=== PATIENT | female | born 1945 | race Caucasian/White ===

== ENCOUNTER 2017-11-17 10:35 | Outpatient (REF) | payer MEDICARE, BC, SELFPAY | END 2017-11-17 10:55 | LOC: NCHCN 10:35 | PROVIDERS: Visit Provider Family Medicine | DX: E79.0 Hyperuricemia without signs of inflammatory arthritis and tophaceous disease (principal); Z01.818 Encounter for other preprocedural examination | CPT/HCPCS: 84550 ==

== ENCOUNTER 2017-12-06 08:45 | Day surgery (SDC) | payer MEDICARE, BC, SELFPAY ==
--- NOTE | 2017-12-04 09:56 | POEE_ITS ---
History of Present Illness Chief Complaint: Progressive decreased vision, right eye Narrative: The patient is a 72-year-old female with history of optic disc cupping, suspicious for glaucoma who developed significant cataract of the left eye in 2017. She underwent cataract surgery in the left eye in 2017. Postoperatively she has regained visual acuity of 20/25 in the left eye. She now presents with complaints of progressive decreased vision at both distance and near in her right eye. On examination she was noted to have moderate yellow nuclear cataract in the right eye. She felt she was significantly symptomatic that she desired cataract surgery to improve and maximize her vision in the right eye. NOTE: The Chief Complaint, HPI, Past Medical History, Past Surgical History, Family History, Social History, Medications, and complete Ophthalmic Exam with detailed Assessment and Plan have already been documented in the patient's outpatient ophthalmic record and are not covered again in detail here. PFSH Medical History Epiretinal membrane (ERM) of left eye (Chronic) Glaucoma suspect of left eye (Chronic) Glaucoma suspect of right eye (Chronic) Nuclear sclerotic cataract of right eye (Acute) Social History Smoking/Tobacco Use Status: Current every day Surgical History Status post cataract extraction and insertion of intraocular lens of left eye ( Chronic 09/07/16) Meds Home Medications Medication Instructions Recorded Confirmed Type aspirin [Aspir 81] 81 mg PO DAILY 09/01/16 12/01/17 History indomethacin 50 mg PO TID PRN 09/01/16 12/01/17 History latanoprost 1 drp OU DAILY 09/01/16 12/01/17 History losartan 50 mg PO DAILY 09/01/16 12/01/17 History Allergies Allergy/AdvReac Type Severity Reaction Status Date / Time lisinopril AdvReac Intermediate chronic Unverified 12/01/17 13:42 cough Exam OCULAR EXAM:: Visual acuity at distance: Corrected to a fuzzy 20/40 right eye, left eye is 20/25. Pupils: Pupils equal, round, and reactive without afferent pupillary defect IOP: 17 OD, 15 OS Extraocular Motility: Normal Pertinent Slit Lamp Findings: Significant for a 2+ yellow nuclear cataract OD. In the left eye there is a well-positioned PCIOL with trace posterior subcapsular haze. Dilated Funduscopic Examination: Disc cupping is 0.75 OU. The rim tissue is thin in the left eye. Retinal vasculature is normal. In the right eye the macula and peripheral retina are normal. In the left eye, there is an epiretinal membrane. Peripheral retina and vitreous are normal in the left eye. BRIGHTNESS ACUITY TESTING (BAT):: see outpatient eye chart Assessment and Plan (1) Nuclear sclerotic cataract of right eye: Current visit: No Status: Acute Assessment: Visually significant cataract, right eye. Plan: Cataract extraction with intraocular lens implantation, right eye Note: NOTE:: The details of the planned surgery, including the risks, indications, limitations,expectations,outcome and possible complications were explained to the patient. The patient understands the complications including, but not limited to: infection, hemorrhage, posterior dislocation of the lens or nuclear fragments which may require the intervention of a vitreoretinal surgeon, possible loss of the eye, or from anesthetic complications. The patient has been made aware of the option of not having surgery, that vision following surgery may not be equal to that prior to surgery, and that the planned surgery may not achieve the intended results. Following this discussion, which the patient appeared to understand, the patient wishes to proceed with cataract surgery with lens implantation of the affected eye to improve and maximize vision.
[2017-12-06 08:55] VITALS: BP 147/80; PULSE 84; RESP 18; TEMP 36.9; O2SAT 98
[2017-12-06] MEDS: Lidocaine 2% Jelly 6 ML SYR (10:35)
[2017-12-06] MEDS: Povidone-Iodine Ophth 30 ML BTL (10:35)
[2017-12-06] MEDS: Lidocaine 1% Pres-Free 5 ML VIAL (10:41)
[2017-12-06] MEDS: Balanced Salt Soln.-PLUS 500 ML BAG (10:42)
--- NOTE | 2017-12-06 11:08 | W.PM.DSUDISC ---
Discharge Plan Discharge Details Attending Provider: Paulo Rider Primary Care Provider: Felix Wilkerson Home Meds and New Rx's Prescriptions: No Action losartan 50 MG tablet 50 mg PO DAILY RF: 0 latanoprost 2.5 ML drops 1 drp OU DAILY RF: 0 aspirin [Aspir-81] 81 MG tablet,delayed release (DR/EC) 81 mg PO DAILY RF: 0 indomethacin 50 MG capsule 50 mg PO TID PRN (Reason: Gout) RF: 0 Discharge Instructions Stand Alone Forms: Post-op Topical Cataract, Joanie Bethea (DSU) DS: Diagnosis Discharge Diagnosis (1) Nuclear sclerotic cataract of right eye: Status: Resolved (2) Status post cataract extraction and insertion of intraocular lens of right eye: Status: Acute
--- NOTE | 2017-12-06 11:09 | W.PM.OP ---
Date of service: 12/06/17 Time of Service: 11:10 Operative Note DATE OF PROCEDURE: 12/06/17 PRE-OP DIAGNOSIS: Cataract, right eye POST-OP DIAGNOSIS: same SURGEON: Paulo Rider ANESTHESIA: MAC and local (sub-tenon's anesthetic infiltration) PATHOLOGY: none sent COMPLICATIONS: None Patient was transported to: same day Patient's condition: stable Implants: Cruzito and Cruzito Vision / [employer] Tecnis ZCB00 Indications: Progressive decreased vision due to cataract, right eye Procedure Description: CATARACT SURGERY OPERATIVE REPORT PREOPERATIVE DIAGNOSIS: Nuclear cataract, right eye POSTOPERATIVE DIAGNOSIS: Same OPERATION: Cataract extraction using phacoemulsification with posterior chamber intraocular lens implant, right eye. IOL: IOL Senior Tableau Developer/Model: J&J Vision / KATRINA Tecnis ZCB00 IOL Power: + 20.0 diopters IOL Serial Number: [id number] Optic Diameter: 6.0mm Haptic/Overall Diameter: 13.0mm PHACO INFO: Vishal GERSurion Vision System with OZil and Active Fluidics Cumulative Dispersed Energy (CDE): 10.85 seconds SURGEON: Paulo Rider MD, DWIGHT ANESTHESIA: Monitored Anesthesia Care (MAC), with local sub-tenon's anesthetic infiltration COMPLICATIONS: None SPECIMENS: None INDICATIONS FOR PROCEDURE: The patient is a 72-year-old female who has previously undergone cataract surgery in her left eye in 08/24. She is done well postoperatively in the left eye. However, she has now developed a symptomatic nuclear cataract in the right eye. She desires cataract surgery and attempt to improve and maximize her vision. PROCEDURE: The correct surgical eye was identified and marked as the right eye and the pupil was dilated in the preoperative area using mydriatics, cycloplegics, and NSAIDS (except in aspirin allergic patients). The dilated pupil size was 8.0 mm. Oral sedation was administered in the form of an Imprimis MKO Melt (midazolam 3mg/ketamine 25mg/ondansetron 2mg). The patient was brought to the operating room where cardiopulmonary monitoring was instituted and surgical time-out was performed, confirming the correct operative eye and IOL power. Topical anesthesia was administered and ophthalmic povidone-iodine 5% was instilled into the conjunctival fornices. Lidocaine gel was applied to the cornea and the marin-ocular area was prepped with Betadine 10% solution and draped in the usual sterile fashion for intraocular surgery. Steri-strips were used to cover the lashes and lid margins and an adhesive eye drape was placed. Care was taken to isolate the lashes and lid margins under the Steri-strips and adhesive eye drape. A lid speculum was placed between the lids of the operative eye and the Branden-Aly operating microscope was maneuvered into position. Chelsie scissors were then used to make a conjunctival buttonhole approximately 6mm posterior to the limbus in the inferonasal quadrant. Blunt dissection was carried out to expose bare sclera, and a blunt-tipped sub-tenon?s anesthesia cannula was introduced and passed posteriorly along the globe where non-preserved plain lidocaine was injected into posterior sub-Tenon?s space. A sideport knife was used to make a paracentesis port at the 7:00 postion and the anterior chamber was filled with Healon GV. A 2.4mm keratome knife was used to create a half-thickness groove at the limbus and then to construct a three-plane near-clear corneal tunnel extending 2.0mm into clear cornea at the 10:00 position. A flap was raised on the anterior capsule and capsulorhexis forceps were used to complete a continuous curvilinear capsulorhexis of 5.0 mm. Balanced salt solution was then used to perform cortical cleaving hydrodissection and nuclear hydrodelineation until the lens could be freely rotated within the capsular bag. The lens nucleus was then disassembled and removed within the capsular bag and iris plane using phacoemulsification. Residual cortical material was removed using the 45-degree angled silicone I/A tip with 0.3mm port. The posterior capsule was carefully polished to remove as much residual lens epithelial cells as safely possible. The capsular bag was then inflated and the anterior chamber deepened with viscoelastic. The lens implant described above was inserted into the capsular bag using the KATRINA [place] Injector. A Kuglen hook was used to dial the IOL into position. Residual viscoelastic was then removed first from posterior to the IOL, then from the anterior chamber using the I/A handpiece. The lens implant was noted to center nicely within the capsular bag. The incisions were stromally hydrated, and the anterior chamber was reformed using BSS. Then 0.4cc of moxifloxacin 1.5mg/ml were injected into the capsular bag and anterior chamber. The incisions were checked with a Weck spear and found to be secure. Several drops of ophthalmic povidone-iodine 5% were then applied to the eye followed by two drops of Imprimis combination moxifloxacin/dexamethasone solution. The drapes were removed and a clear plastic protective eye shield was placed over the eye. The patient was then returned to Same Day Surgery in stable condition.
--- NOTE | 2017-12-06 11:14 | ROE_ITS ---
Date of service: 12/06/17 Time of Service: 11:10 Operative Note DATE OF PROCEDURE: 12/06/17 PRE-OP DIAGNOSIS: Cataract, right eye POST-OP DIAGNOSIS: same SURGEON: Paulo Rider ANESTHESIA: MAC and local (sub-tenon's anesthetic infiltration) PATHOLOGY: none sent COMPLICATIONS: None Patient was transported to: same day Patient's condition: stable Implants: Cruzito and Cruzito Vision / [employer] Opt[employer] Tecnis ZCB00 Indications: Progressive decreased vision due to cataract, right eye Procedure Description: CATARACT SURGERY OPERATIVE REPORT PREOPERATIVE DIAGNOSIS: Nuclear cataract, right eye POSTOPERATIVE DIAGNOSIS: Same OPERATION: Cataract extraction using phacoemulsification with posterior chamber intraocular lens implant, right eye. IOL: IOL Stencil Cutter Machine/Model: J&J Vision / KATRINA Tecnis ZCB00 IOL Power: + 20.0 diopters IOL Serial Number: [id number] Optic Diameter: 6.0mm Haptic/Overall Diameter: 13.0mm PHACO INFO: Vishal CubeSensorsurion Vision System with OZil and Active Fluidics Cumulative Dispersed Energy (CDE): 10.85 seconds SURGEON: Paulo Rider MD, DWIGHT ANESTHESIA: Monitored Anesthesia Care (MAC), with local sub-tenon's anesthetic infiltration COMPLICATIONS: None SPECIMENS: None INDICATIONS FOR PROCEDURE: The patient is a 72-year-old female who has previously undergone cataract surgery in her left eye in 08/24. She is done well postoperatively in the left eye. However, she has now developed a symptomatic nuclear cataract in the right eye. She desires cataract surgery and attempt to improve and maximize her vision. PROCEDURE: The correct surgical eye was identified and marked as the right eye and the pupil was dilated in the preoperative area using mydriatics, cycloplegics, and NSAIDS (except in aspirin allergic patients). The dilated pupil size was 8.0 mm. Oral sedation was administered in the form of an Imprimis MKO Melt (midazolam 3mg/ketamine 25mg/ondansetron 2mg). The patient was brought to the operating room where cardiopulmonary monitoring was instituted and surgical time-out was performed, confirming the correct operative eye and IOL power. Topical anesthesia was administered and ophthalmic povidone-iodine 5% was instilled into the conjunctival fornices. Lidocaine gel was applied to the cornea and the marin-ocular area was prepped with Betadine 10% solution and draped in the usual sterile fashion for intraocular surgery. Steri-strips were used to cover the lashes and lid margins and an adhesive eye drape was placed. Care was taken to isolate the lashes and lid margins under the Steri-strips and adhesive eye drape. A lid speculum was placed between the lids of the operative eye and the Branden-Aly operating microscope was maneuvered into position. Chelsie scissors were then used to make a conjunctival buttonhole approximately 6mm posterior to the limbus in the inferonasal quadrant. Blunt dissection was carried out to expose bare sclera, and a blunt-tipped sub-tenon? s anesthesia cannula was introduced and passed posteriorly along the globe where non-preserved plain lidocaine was injected into posterior sub-Tenon?s space. A sideport knife was used to make a paracentesis port at the 7:00 postion and the anterior chamber was filled with Healon GV. A 2.4mm keratome knife was used to create a half-thickness groove at the limbus and then to construct a three-plane near-clear corneal tunnel extending 2.0mm into clear cornea at the 10:00 position. A flap was raised on the anterior capsule and capsulorhexis forceps were used to complete a continuous curvilinear capsulorhexis of 5.0 mm. Balanced salt solution was then used to perform cortical cleaving hydrodissection and nuclear hydrodelineation until the lens could be freely rotated within the capsular bag. The lens nucleus was then disassembled and removed within the capsular bag and iris plane using phacoemulsification. Residual cortical material was removed using the 45-degree angled silicone I/A tip with 0.3mm port. The posterior capsule was carefully polished to remove as much residual lens epithelial cells as safely possible. The capsular bag was then inflated and the anterior chamber deepened with viscoelastic. The lens implant described above was inserted into the capsular bag using the KATRINA [place] Injector. A Kuglen hook was used to dial the IOL into position. Residual viscoelastic was then removed first from posterior to the IOL, then from the anterior chamber using the I/A handpiece. The lens implant was noted to center nicely within the capsular bag. The incisions were stromally hydrated , and the anterior chamber was reformed using BSS. Then 0.4cc of moxifloxacin 1.5mg/ml were injected into the capsular bag and anterior chamber. The incisions were checked with a Weck spear and found to be secure. Several drops of ophthalmic povidone-iodine 5% were then applied to the eye followed by two drops of Imprimis combination moxifloxacin/dexamethasone solution. The drapes were removed and a clear plastic protective eye shield was placed over the eye. The patient was then returned to Same Day Surgery in stable condition.
[2017-12-06 11:30] VITALS: BP 123/65; PULSE 71; RESP 18; TEMP 36.6; O2SAT 94
== END 2017-12-06 11:45 | disposition home or self-care (01) ==
LOC: SUR 08:45
PROVIDERS: PCP Internal Medicine; Visit Provider Ophthalmology
PROC: (CPT 66984; principal; 2017-12-06 11:30)
DX: H25.11 Age-related nuclear cataract, right eye (principal); Z98.42 Cataract extraction status, left eye; Z96.1 Presence of intraocular lens; F17.210 Nicotine dependence, cigarettes, uncomplicated; I10 Essential (primary) hypertension
CPT/HCPCS: 66984; V2632

== ENCOUNTER 2018-11-23 09:49 | Outpatient (REF) | payer MEDICARE, BC, SELFPAY ==
[2018-11-24 08:36] LABS: Anion Gap 9.2 mmol/L (3-11); BUN 13 mg/dL (7-18); CO2 27.8 mmol/L (21.0-32.0); CREATININE 0.88 mg/dL (0.55-1.02); Calcium 9.4 mg/dL (8.5-10.1); Calculated LDL 147 mg/dL; Chloride 104 mmol/L (98-107); Cholesterol 222 mg/dL (50-200); Glucose 112 mg/dL (70-100); HDL Cholesterol 40 mg/dL (40-60); Potassium 4.1 mmol/L (3.5-5.1); Sodium 141 mmol/L (136-145); Triglyceride 178 mg/dL (30-150)
[2018-11-24 08:44] LABS: Uric Acid 6.5 mg/dL (2.6-6.0)
== END 2018-11-23 10:09 ==
LOC: NCHCN 09:49
PROVIDERS: PCP Internal Medicine; Visit Provider Internal Medicine
DX: I10 Essential (primary) hypertension (principal); E66.9 Obesity, unspecified; E79.0 Hyperuricemia without signs of inflammatory arthritis and tophaceous disease
CPT/HCPCS: 80048; 80061; 84550

== ENCOUNTER 2019-07-17 09:29 | Outpatient (REF) | payer MEDICARE, BC, SELFPAY ==
[2019-07-17 21:51] LABS: Glucose 105 mg/dL (74-106)
[2019-07-17 21:58] LABS: Hemoglobin A1C 5.8 % (3.8-5.6)
== END 2019-07-17 09:49 ==
LOC: NCHCN 09:29
PROVIDERS: PCP Internal Medicine; Visit Provider Internal Medicine
DX: R73.03 Prediabetes (principal)
CPT/HCPCS: 82947; 83036

== ENCOUNTER 2020-04-08 16:10 | Outpatient (REF) | payer MEDICARE, BC, SELFPAY ==
[2020-04-08 13:38] LABS: Anion Gap 7.7 mmol/L (3-11); BUN 14 mg/dL (7-18); CO2 27.3 mmol/L (21.0-32.0); CREATININE 0.9 mg/dL (0.55-1.02); Calcium 9.6 mg/dL (8.5-10.1); Calculated LDL 42 mg/dL (<100); Chloride 106 mmol/L (98-107); Cholesterol 94 mg/dL (<200); Glucose 116 mg/dL (74-106); HDL Cholesterol 33 mg/dL (40-60); Potassium 4.6 mmol/L (3.5-5.1); Sodium 141 mmol/L (136-145); Triglyceride 97 mg/dL (<150)
[2020-04-08 13:53] LABS: Uric Acid 6.1 mg/dL (2.6-6.0)
== END 2020-04-08 16:11 | disposition home or self-care (01) ==
LOC: NCHCN 16:10
PROVIDERS: PCP Internal Medicine; Visit Provider Internal Medicine
DX: I10 Essential (primary) hypertension (principal); E79.0 Hyperuricemia without signs of inflammatory arthritis and tophaceous disease; R73.03 Prediabetes; E78.5 Hyperlipidemia, unspecified
CPT/HCPCS: 80048; 80061; 84550

== ENCOUNTER 2021-03-06 15:00 | Outpatient (REF) | payer MEDICARE, SELFPAY ==
[2021-03-06 16:39] LABS: Hemoglobin A1C 5.6 % (<5.7)
[2021-03-06 16:40] LABS: Anion Gap 8.1 mmol/L (3-11); BUN 21 mg/dL (7-18); CO2 28.9 mmol/L (21.0-32.0); CREATININE 0.9 mg/dL (0.55-1.02); Calcium 9.1 mg/dL (8.5-10.1); Chloride 105 mmol/L (98-107); Glucose 128 mg/dL (74-106); Potassium 4.1 mmol/L (3.5-5.1); Sodium 142 mmol/L (136-145); Uric Acid 4.7 mg/dL (2.6-6.0)
== END 2021-03-06 15:01 | disposition home or self-care (01) ==
LOC: NCHCN 15:00
PROVIDERS: PCP Internal Medicine; Visit Provider Internal Medicine
DX: I10 Essential (primary) hypertension (principal); E79.0 Hyperuricemia without signs of inflammatory arthritis and tophaceous disease
CPT/HCPCS: 80048; 83036; 84550

== ENCOUNTER 2021-11-03 13:36 | Outpatient (REF) | payer MEDICARE, SELFPAY ==
[2021-11-03 15:11] LABS: Anion Gap 6.3 mmol/L (3-11); BUN 19 mg/dL (7-18); CO2 30.7 mmol/L (21.0-32.0); Calcium 9.6 mg/dL (8.5-10.1); Chloride 103 mmol/L (98-107); Estimated GFR 58.02 (mL/min/1.73m2); Glucose 115 mg/dL (74-106); Potassium 3.9 mmol/L (3.5-5.1); Sodium 140 mmol/L (136-145)
[2021-11-03 15:15] LABS: Hemoglobin A1C 5.7 % (<5.7)
--- OUTSIDE RECORDS SUMMARY | 2021-11-04 13:42 | XMS_ITS | Encounter Summary ---
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 Referral (Routine) - Authorization Not Required Specialty Diagnoses / Procedures Referred By Contact Refer red To Contact Ophthalmology Diagnoses Macular cyst, hole, or pseudohole, right eye Puckering of macula, bilateral Venous engorgement, bilateral Woodrow Booth Wp[facility] Ophthalmology [address] [facility] [address] [place] [address] [address] [place], [place] Fax: [phone] Referral ID Status Reason Start Expiration Visits Visits Date Date Requested Authorized [id number] Authorization Not 1 1 Required Encounter Details Date Type Department Care Team Description 06/07/2018 Office Visit [facility] Mario Mora MD Ophthalmology - [address], [address] [place], [place] [address] [place], [place] [phone] (Wo rk) Social History Tobacco Use Types Packs/Day Years Used Date Light Tobacco Smoker Smokeless Tobacco: Never Used Sex Assigned at Date Recorded Not on file documented as of this encounter Functional Status Functional Status Response Date of Assessment Because of a physical, mental, or emotional condition, No 06/07/2018 does this person have difficulty doing errands alone such as visiting a doctor's office or shopping? Cognitive Status Response Date of Assessment Because of a physical, mental, or emotional condition, No 06/07/2018 does this person have serious difficulty concentrating, remembering, or making decisions? documented as of this encounter Discharge Diagnoses Diagnosis H35.373 Puckering of macula, bilateral-H 35.373[ICD-10-CM] H35.349 Macular cyst, hole, or pseudohol e, unspecified eye-H35.349[ICD-10-CM] H43.393 Other vitreous opacities, bilate ral-H43.393[ICD-10-CM] documented in this encounter Discharge Disposition Disposition Code Departure Means Destination Auto Discharge documented in this encounter Progress Notes Mario Mora MD - 06/07/2018 0945 EDT Chief Complaint Patient presents with ??? Eye Problem New patient eval ERM w/ partial, tractional macular hole right eye from [facility]. HPI Location: Right eye Pain: 0 - No pain Quality: Blurry Severity: Moderate Duration: Months Timing: Constant Lasts: Continuous Context: ERM w/ partial tractional hole right eye. Borderline glaucoma using Latanaprost hs/hs Modifying factors: Patient notes has big floater in right eye that floats back and forth. No distortion in vision. Occasional flashing lights at night. Floaters both eyes. No pain. Aware of right eye, irritated. Associated Signs & Symptoms: s/p Cataract surgery both eyes, s/p YAG caps left. Visual Fluctuations: Floaters Attestation: The above HPI has been reviewed by the Attending Physiciangiant floater right eye for about 3 months, no distortion Base Eye Exam Visual Acuity (Snellen - Linear) Right Left Dist cc 20/30 -2 20/30 Correction: Glasses Tonometry (Applanation, 10:26) Right Left Pressure 18 15 Pupils Pupils Light APD Right PERRL 4 None Left PERRL 4 None Visual Martinez (Counting fingers) Right Left Full Full Extraocular Movement Right Left Full, Ortho Full, Ortho Neuro/Psych Oriented x3: Yes Mood/Affect: Normal Dilation Both eyes: 1.0% Mydriacyl, 2.5% Phenylephrine @ 10:26 Slit Lamp and Fundus Exam Slit Lamp Exam Right Left Lids/Lashes Normal Normal Conjunctiva/Sclera White and quiet White and quiet Cornea Clear Clear Anterior Chamber Deep and quiet Deep and quiet Iris Round and reactive Round and reactive Lens Posterior chamber intraocular lens Posterior chamber intraocular lens Vitreous Vitreous syneresis Vitreous syneresis vs PVD Fundus Exam Right Left Disc Normal Normal C/D Ratio 0.6 0.8 Macula ERM, pseudohole cellophane reflex Please refer to large retinal drawing. IMAGING: OCT REPORT Indications: Epiretinal Membrane Findings: Right Eye Left Eye Epiretinal Membrane and VMA, PTMH Epiretinal Membrane Original test to be found in patients shadow chart DIAGNOSES: 1. Macular pucker of both eyes OCT (OPHTHALMIC DIGITAL IMAGING, POSTERIOR SEGMENT) 2. Vitreous syneresis of both eyes 3. Lamellar macular hole of right eye OCT (OPHTHALMIC DIGITAL IMAGING, POSTERIOR SEGMENT) IMPRESSION & PLAN: ERM right eye > left eye Non visually significant No intervention recommended Pt agrees Pseudohole right eye No FTMH Stable and asymptomatic No intervention VS both eyes No PVD, holes, tears Observe Return in 1 year with OCT sooner PRN Return in about 1 year (around 06/08/2019). I have reviewed the past medical, family, social and surgical history. I have reviewed the meds, allergies, and problem list. I performed my own HPI and reviewed the ROS. I personally completed the exam. The patient was instructed to call our office or go to emergency room if worse vision, worse symptoms, or new/other concerns arise. Mario Mora MD I am scribing for Dr. Mario Mora MD while he is personally performing the service. 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 Medication Sig Dispensed Refills Start Date End Date acetaminophen (TYLENOL) 500 Take 500 mg by mouth 0 mg tablet every 6 hours as needed for Pain. aspirin chewable 81 mg Take 81 mg by mouth 0 tablet daily. latanoprost (XALATAN Place 1 drop into 0 OPHTHALMIC) both eyes at bedtime. losartan (COZAAR) 50 mg Take 50 mg by mouth 0 tablet daily. allopurinol (ZYLOPRIM) 100 Take 100 mg by mouth 0 mg tablet daily. added in this encounter Eye Exam Visual Acuity (Snellen - Linear) Right eye Left eye Dist cc 20/30 -2 20/30 Correction: Glasses Tonometry (Applanation, 10:26) Right eye Left eye Pressure 18 15 Pupils Pupils Light APD Right eye PERRL 4 None Left eye PERRL 4 None Visual Martinez (Counting fingers) Right eye Left eye Full Full Extraocular Movement Right eye Left eye Full, Ortho Full, Ortho Neuro/Psych Oriented x3: Yes Mood/Affect: Normal Dilation Both eyes: 1.0% Mydriacyl, 2.5% Phenylep hrine @ 10:26 Slit Lamp Exam Right eye Left eye Lids/Lashes Normal Normal Conjunctiva/Sclera White and quiet White and quiet Cornea Clear Clear Anterior Chamber Deep and quiet Deep and quiet Iris Round and reactive Round and reactive Lens Posterior chamber intraocular Posterior chamber intraocular lens lens Vitreous Vitreous syneresis Vitreous syneresis v s PVD Fundus Exam Right eye Left eye Disc Normal Normal C/D Ratio 0.6 0.8 Macula ERM, pseudohole cellophane reflex Care Teams Physical Instructor Relationship Specialty Start Date End Date Felix Wilkerson MD PCP - General 03/29/18 [address] [place] [address] documented as of this encounter
--- OUTSIDE RECORDS SUMMARY | 2021-11-04 13:42 | XMS_ITS | CCD ---
:1945 Author Care Team Providers Name Role Phone SHU WOOD Attending Physician Unavailable Vital Signs Unknown or Not Available. Allergies Unknown or Not Available. Procedures Unknown or Not Available. History of Immunizations Unknown or Not Available. Problems Unknown or Not Available. Results Unknown or Not Available. Active Medications Unknown or Not Available. Medications Administered During Visit Unknown or Not Available. Encounters Encounter Diagnosis Diagnosis Code Start Date Encounter for screening mammogram for malignant neoplasm Z12 31 06/26/2021 of breast Social History Smoking Status Code Start Date End Date Current every day smoker [id number] 02/09/1957 Patient Decision Aids Unknown or Not Available. Discharge Instructions You were admitted to [facility] on 06/26/2021 10:48 with a principal diagnosis of Encounter for screening mammogram for malignant neoplasm of breast You were discharged from [facility] on 06/26/2021 10:48 Should you have any questions prior to d ischarge, please contact a member of your healthcare team. If you have left the ho spital and have any questions, please contact your primary care physician. Chief Complaint and Reason For Visit Chief Complaint Date of Onset SCR Function Status Unknown or Not Available. Plan of Care Unknown or Not Available. Referral/Transition of Care Unknown or Not Available.
--- OUTSIDE RECORDS SUMMARY | 2021-11-04 13:42 | XMS_ITS | Clinical Summary ---
:1945 Author Organization [facility] Address [address] [place] [address] Care Team Providers Name Role Phone Felix Wilkerson MD Primary Care Provider Allergies No known active allergies Medications Medication Sig Dispensed Refills Start Date End Date Status allopurinol (ZYLOPRIM) Take 100 mg by 0 Active 100 mg tablet mouth daily. losartan (COZAAR) 50 mg Take 50 mg by 0 Active tablet mouth daily. latanoprost (XALATAN Place 1 drop 0 Active OPHTHALMIC) into both eyes at bedtime. aspirin chewable 81 mg Take 81 mg by 0 Active tablet mouth daily. acetaminophen (TYLENOL) Take 500 mg by 0 Active 500 mg tablet mouth every 6 hours as needed for Pain. 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 Surgical History Surgery Date Site/Laterality Comments TUBAL LIGATION CAPSULOTOMY Left INTRAOCULAR LENS PROSTHESIS INSERTION Right INTRAOCULAR LENS PROSTHESIS INSERTION Left Medical History Medical History Date Comments Hypertension Rheumatoid disease (HCC) Cataract Glaucoma Family History Medical History Relation Name Comments No Known Father Diabetes Mother Hypertension Mother Relation Name Status Comments Father Mother Social History Tobacco Use Types Packs/Day Years Used Date Light Tobacco Smoker Smokeless Tobacco: Never Used Sex Assigned at Date Recorded Not on file Plan of Treatment Upcoming Encounters Date Type Specialty Care Team Description 02/12/2022 Office Visit Ophthalmology Percy Gordon MD [address] [place] [phone] (Wo rk) Health Maintenance Due Date Last Done Comments Hepatitis C Screen 1945 COVID-19 Vaccine (#1) 1945 Fall Risk Screening 2009 Care Teams Sheather Relationship Specialty Start Date End Date Felix Wilkerson MD PCP - General 03/29/18 [address] [place] [address]
--- OUTSIDE RECORDS SUMMARY | 2021-11-04 13:42 | XMS_ITS | Encounter Summary ---
:[address] [facility] Address [address] [place] [address] Care Team Providers Name Role Phone Unknown, Provider Primary Care Provider Encounter Details Date Type Department Care Team Description 03/07/2015 Results Only [facility]- Manuela Anaya MD [phone] [address] [place] [address] (Wo rk) Social History Tobacco Use Types Packs/Day Years Used Date Never Assessed Sex Assigned at Date Recorded Not on file documented as of this encounter Plan of Treatment Upcoming Encounters Date Type Specialty Care Team Description 02/12/2022 Office Visit Ophthalmology ePrcy Gordon MD [address] [place] [phone] (Wo rk) documented as of this encounter Procedures Procedure Name Priority Date/Time Associated Diagnosis Comme [facility] SURGICAL PATHOLOGY Routine 03/07/2015 8:09 EST Re sults for this procedure are i n the results section. documented in this encounter Results SURGICAL PATHOLOGY (03/07/2015 8:09 EST) Pathology SURGICAL PATHOLOGY REPORT [facility] MEDICAL Report: Reports generated via electronic interface conta in original data; CENTER however they are lacking the format of the original re port. LABORATORY Caution should be taken when reading/interpretin g unformatted reports. SERVICES Name: ? SAMIRA DOZIER ? Accession #: ? [id number] ? : ? 1945 (Age: 69 ) ??F ? Collect Date: ? 03/07/2015 ? Location: ? [facility] ? Receive Date: ? 03/09/19 16 ? Provider: MANUELA SAUCEDO MD Copy to: ? Final Pathologic Diagnosis: SKIN OF ABDOMINAL WALL, EXCISIONAL BIOPSY: - Verruca vulgaris, irritated and inflamed. Microscopic Description: The stratum corneum is thickened by compact orth ohyperkeratosis with tiers of parakeratosis and foci of hemorrhage. ??The epidermis is hyperplastic with papillomatosis and acanthosis. ??The acanthotic rete r idges have an inward-bending configuration. ??The supe rficial keratinocytes have perinuclear vacuoles. ??The granular layer is accentuated. ??There is a moderately dense lymphohistiocytic infiltrate. ??(Dr. Ross)/[facility] Document reviewed and electronically signed by: ELYSSA ROSS MD Report ??Date: 03/12/2015 14:17 By the signature above, the attending physician certif ies that he/she has personally conducted a gross and/or microscopic examin ation of the described specimens and rendered or confirmed the above diagnosi s. Specimen(s) Received: Not listed Clinical History: Abdominal wall lesion Gross Description: ? Received in formalin labelled with proper patient identification (initials A, M) and abdominal lesion is an unoriented el liptical excision of pink-meraz skin (0.7 x 0.5 cm and is excised to a depth of 0.1 cm). There is a meraz-white eccentric papule that measures 0.4 x 0.3 x 0.2 cm. The margins are inked blue. The specimen is serially sec tioned and entirely submitted as 1 central sections and 2 tips, reverse en face. Kinza Dos Santos 03/11/2015 9:43 AM End of Report Specimen Performing Organization Address City/State/ZIP Code Phon e Number [facility] [address] [place] [address] SERVICES documented in this encounter Visit Diagnoses Not on filedocumented in this encounter Care Teams Tip Length Checker Relationship Specialty Start Date End Date Unknown, Provider, PCP - General 11/12/10 03/28/18 documented as of this encounter
--- OUTSIDE RECORDS SUMMARY | 2021-11-04 13:42 | XMS_ITS | Encounter Summary ---
:1945 Author Organization [facility] Address [address] [place] [address] Care Team Providers Name Role Phone Unknown, Provider Primary Care Provider Encounter Details Date Type Department Care Team Description 11/12/2010 Results Only [facility] Cherelle Daniels MD Laboratory Services - [address] [place] [phone] (Wo rk) Social History Tobacco Use Types Packs/Day Years Used Date Never Assessed Sex Assigned at Date Recorded Not on file documented as of this encounter Plan of Treatment Upcoming Encounters Date Type Specialty Care Team Description 02/12/2022 Office Visit Ophthalmology Percy Gordon MD [address] [place] [phone] (Wo rk) documented as of this encounter Procedures Procedure Name Priority Date/Time Associated Diagnosis Comme nts SURGICAL PATHOLOGY Routine 11/12/2010 0:00 EDT Re sults for this procedure are i n the results section. documented in this encounter Results SURGICAL PATHOLOGY (11/12/2010 0:00 EDT) Pathology SURGICAL PATHOLOGY REPORT ? [facility] Report: Reports generated via electr [email or web address] interface contain original data; ? LAB however they are lacking the format of the original report. ? Caution should be taken when reading/interpreting unformatted reports. ? Name: ? AMSDEN, SAMIRA ? Accession #: ? [id number] ? : ? 1945 (Age: 65) ??F ? Collec t Date: ? 11/12/2010 ? Location: ? [facility] ? R eceive Date: ? 11/12/2010 ? Provider: C OWEN DANIELS MD ? Copy to: ZECHARIHA MECH MD ? MANUELA N SAUCEDO MD ? Final Pathologic Diagnosis: ?Breast, right, mass , 3 o'clock, core biopsies: ? 1. ?Nodular fib rocystic changes, including: ? - Nodular fibrosis. ? - Adenosis and sclerosing ad enosis. ? - Microcysts. ? - Focal moderate epithelial hyperplasia. ? 2. ?? Microcalcificat ions associated with fibrocystic changes. ? Document reviewed and electr onically signed by: ? CHASE B AMBAYE MD ? Report ??Date: 11/14/2010 16 :57 ? By the signature above, the attending physician certifies that he/she has ? personally conducted a gross and/or microscopic examination of the described ? specimens and rendered or co nfirmed the above diagnosis. ? Specimen(s) Received: ? R breast mass 3 o'jacqueline ck ? Clinical History: ? Solid mass seen on ma mmo/US ? Gross Description: ? Received in formalin labelled Samira Stewart are eighteen white, firm, ?? focally yellow, focally soft cylinders of tissue which range in length from 2.5 cm to 0.7 cm and vary in sandy meter from 0.4 cm to 0.1 cm as well as a 2.0 x 1.3 x 0.5 cm aggregate of multiple light yellow, soft fragments of adipose tissue ? admixed with a scanty amount of white fibrous tissue and also admixed with a 0.5 x 0.1 x 0.1 cm fragment of b lood clot. ??The specimen is submitted entirely as ?? follows: ? BLOCK ALFORD ? A1-A6 ?Eighteen cylinders (each cassette contains three cylinders) ? A7, A8 ?Remaini ng separately received smaller fragments of tissue ? (J. Tessitore)/kmm ? Time in formalin: ??November 12, 2010 at 15:00 hours ? Time out of formalin: ??Octo arthur 6, 2011 at 19:00 hours ? End of Report ? Specimen Performing Organization Address City/State/[facility] Code Phon e Number [facility] [address] [place] [address] SERVICES [facility] [address] [place] [address] documented in this encounter Visit Diagnoses Not on filedocumented in this encounter Care Teams Well Puller Head Relationship Specialty Start Date End Date Unknown, Provider, PCP - General 11/12/10 03/28/18 documented as of this encounter
--- OUTSIDE RECORDS SUMMARY | 2021-11-04 13:42 | XMS_ITS | Encounter Summary ---
:1945 Author Organization [facility] Address [address] [place] [address] Care Team Providers Name Role Phone Unknown, Provider Primary Care Provider Encounter Details Date Type Department Care Team Description 03/07/2015 Hospital Encounter [facility]- Nydia Unknown, Provider, Du Saldivar MD [address] [place] [address] [place] [address] (Work) [phone] Social History Tobacco Use Types Packs/Day Years Used Date Never Assessed Sex Assigned at Date Recorded Not on file documented as of this encounter Discharge Disposition Disposition Code Departure Means Destination Home or Self Usp documented in this encounter Plan of Treatment Upcoming Encounters Date Type Specialty Care Team Description 02/12/2022 Office Visit Ophthalmology Percy Gordon MD [address] [place] [phone] (Wo rk) documented as of this encounter Visit Diagnoses Not on filedocumented in this encounter Care Teams Environmental Quality Analyst Relationship Specialty Start Date End Date Unknown, Provider, PCP - General 11/12/10 03/28/18 documented as of this encounter
== END 2021-11-03 13:37 | disposition home or self-care (01) ==
LOC: NCHCN 13:36
PROVIDERS: PCP Internal Medicine; Visit Provider Internal Medicine
DX: Z00.00 Encounter for general adult medical examination without abnormal findings (principal); I10 Essential (primary) hypertension; R73.03 Prediabetes
CPT/HCPCS: 80048; 83036

== ENCOUNTER 2022-10-08 12:47 | Outpatient (REF) | payer MEDICARE, SELFPAY ==
[2022-10-08 21:12] LABS: Abs Immature Grans 0.03 10^3/uL (0.0-0.06); Absolute Basophil Count 0.07 10^3/uL (0.0-0.2); Absolute Eosinophil Count 0.36 10^3/uL (0.0-0.7); Absolute Lymphocyte Count 2.65 10^3/uL (1.2-3.4); Absolute Monocyte Count 0.71 10^3/uL (0.1-0.8); Absolute Neutrophil Count 5.51 10^3/uL (1.2-6.7); Basophils % 0.8; Eosinophils % 3.9; HCT 40.4 % (36.0-46.0); HGB 13.6 g/dL (11.2-15.7); Immature Grans % 0.3; Lymphocytes % 28.4; MCHC 33.7 % (32.0-36.0); MCV 92 fL (80-95); MPV 9.8 fL (8.0-11.0); Monocytes % 7.6; Platelet Count 254 10^3/uL (130-400); RBC 4.39 10^6/uL (3.93-5.22); RDW 12.6 % (11.7-14.6); RDW-SD 42.6 fL; WBC 9.33 10^3/uL (4.4-10.8)
[2022-10-08 21:35] LABS: ALT 28 U/L (14-59); AST 21 U/L (15-37); Albumin 3.7 g/dL (3.4-5.0); Alkaline Phosphatase 77 U/L (46-116); Anion Gap 10.2 mmol/L (3-11); BUN 14 mg/dL (7-18); Bilirubin, Total 0.5 mg/dL (0.2-1.0); CO2 25.8 mmol/L (21.0-32.0); CREATININE 0.8 mg/dL (0.55-1.02); Calcium 9.2 mg/dL (8.5-10.1); Chloride 103 mmol/L (98-107); Estimated GFR 75.37 (mL/min/1.73m2); Glucose 100 mg/dL (74-106); Potassium 3.9 mmol/L (3.5-5.1); Sodium 139 mmol/L (136-145); TSH (W/Ref FT4) 1.12 uIU/mL (0.36-3.74); Total Protein 7.6 g/dL (6.4-8.2)
[2022-10-08 21:42] LABS: Hemoglobin A1C 5.7 % (<5.7)
== END 2022-10-08 12:48 | disposition home or self-care (01) ==
LOC: NCHCN 12:47
PROVIDERS: PCP Internal Medicine; Visit Provider Family Medicine
DX: I10 Essential (primary) hypertension (principal); R73.03 Prediabetes; R53.83 Other fatigue
CPT/HCPCS: 80053; 83036; 84443; 85025

== ENCOUNTER 2023-10-28 15:51 | Outpatient (REF) | payer MEDICARE, SELFPAY ==
[2023-10-28 16:43] LABS: Abs Immature Grans 0.02 10^3/uL (0.0-0.06); Absolute Basophil Count 0.04 10^3/uL (0.0-0.2); Absolute Eosinophil Count 0.27 10^3/uL (0.0-0.7); Absolute Lymphocyte Count 1.56 10^3/uL (1.2-3.4); Absolute Monocyte Count 0.88 10^3/uL (0.1-0.8); Absolute Neutrophil Count 5.22 10^3/uL (1.2-6.7); Basophils % 0.5 %; Eosinophils % 3.4 %; HCT 41.2 % (36.0-46.0); HGB 13.6 g/dL (11.2-15.7); Immature Grans % 0.3 %; Lymphocytes % 19.5 %; MCH 31.3 pg (27.0-33.0); MCV 95 fL (80-95); MPV 10.1 fL (8.0-11.0); Neutrophils % 65.3 %; Platelet Count 242 10^3/uL (130-400); RBC 4.35 10^6/uL (3.93-5.22); RDW 12.8 % (11.7-14.6); RDW-SD 44.3 fL; WBC 7.99 10^3/uL (4.4-10.8)
[2023-10-28 16:48] LABS: ESR 32 mm/hr (0-30)
[2023-10-28 17:14] LABS: ALT 36 U/L (14-59); AST 34 U/L (15-37); Albumin 3.6 g/dL (3.4-5.0); Alkaline Phosphatase 78 U/L (46-116); BUN 23 mg/dL (7-18); Bilirubin, Total 0.41 mg/dL (0.2-1.0); C-Reactive Protein 5.08 mg/dL (<or=0.5); CREATININE 1.5 mg/dL (0.55-1.02); Calcium 9.5 mg/dL (8.5-10.1); Chloride 102 mmol/L (98-107); Estimated GFR 35.23 (mL/min/1.73m2); Glucose 122 mg/dL (74-106); Potassium 4.1 mmol/L (3.5-5.1); Sodium 138 mmol/L (136-145); Total Protein 7.9 g/dL (6.4-8.2)
[2023-10-28 17:22] LABS: Hemoglobin A1C 5.8 % (<5.7)
[2023-11-02 18:49] LABS: Anaplasma phagocytophilum Negative (Negative); B. miyamotoi PCR Negative (Negative); Babesia divergens/MO-1 Negative (Negative); Babesia duncani Negative (Negative); Babesia microti Negative (Negative); Ehrlichia chaffeensis Negative (Negative); Ehrlichia ewingii/canis Negative (Negative); Ehrlichia muris eauclairensis Negative (Negative)
== END 2023-10-28 15:52 | disposition home or self-care (01) ==
LOC: NCHCN 15:51
PROVIDERS: PCP Internal Medicine; Visit Provider Family Medicine
DX: R73.03 Prediabetes (principal); R61 Generalized hyperhidrosis
CPT/HCPCS: 80053; 85652; 87798; 83036; 85025; 86140

== ENCOUNTER 2023-11-19 16:26 | Outpatient (REF) | payer MEDICARE, SELFPAY ==
[2023-11-19 22:03] LABS: ESR 50 mm/hr (0-30)
[2023-11-19 22:04] LABS: Abs Immature Grans 0.03 10^3/uL (0.0-0.06); Absolute Basophil Count 0.07 10^3/uL (0.0-0.2); Absolute Lymphocyte Count 2.36 10^3/uL (1.2-3.4); Absolute Neutrophil Count 5.41 10^3/uL (1.2-6.7); Basophils % 0.8 %; Eosinophils % 3.3 %; HCT 40.6 % (36.0-46.0); HGB 13.4 g/dL (11.2-15.7); Immature Grans % 0.3 %; MCH 31.2 pg (27.0-33.0); MCV 94 fL (80-95); MPV 9.6 fL (8.0-11.0); Monocytes % 9.9 %; Neutrophils % 59.7 %; Platelet Count 300 10^3/uL (130-400); RDW 12.5 % (11.7-14.6); RDW-SD 43.3 fL; WBC 9.07 10^3/uL (4.4-10.8)
[2023-11-19 22:27] LABS: ALT 22 U/L (14-59); AST 17 U/L (15-37); Albumin 3.6 g/dL (3.4-5.0); Alkaline Phosphatase 100 U/L (46-116); Anion Gap 11.4 mmol/L (3-11); BUN 13 mg/dL (7-18); Bilirubin, Total 0.53 mg/dL (0.2-1.0); C-Reactive Protein 4.09 mg/dL (<or=0.5); CO2 27.6 mmol/L (21.0-32.0); CREATININE 0.9 mg/dL (0.55-1.02); Calcium 10.2 mg/dL (8.5-10.1); Chloride 105 mmol/L (98-107); Estimated GFR 65.03 (mL/min/1.73m2); Glucose 75 mg/dL (74-106); Potassium 3.9 mmol/L (3.5-5.1); Sodium 144 mmol/L (136-145); Total Protein 8.4 g/dL (6.4-8.2)
[2023-11-20 22:33] LABS: Rheumatoid Factor 71.7 IU/mL (<12.0)
[2023-11-22 08:38] LABS: Cyclic Citrullinated Peptide 155.2 U/mL (<5.0)
[2023-11-22 10:28] LABS: Lyme Ab w Rflx to Lyme Confirm Negative (Negative)
== END 2023-11-19 16:27 | disposition home or self-care (01) ==
LOC: NCHCN 16:26
PROVIDERS: PCP Internal Medicine; Visit Provider Family Medicine
DX: E78.5 Hyperlipidemia, unspecified (principal); M13.0 Polyarthritis, unspecified; R73.03 Prediabetes
CPT/HCPCS: 80053; 85652; 86200; 85025; 86140; 86431; 86618